=== PATIENT | male | born 1985 | race Caucasian/White ===

== ENCOUNTER 2019-11-06 09:15 | Emergency (ER) | payer OTHER ==
[2019-11-06] MEDS ORDERED: IBUPROFEN 800 MG TABLET PO STA (09:53)
[2019-11-06] MEDS ORDERED: ACETAMINOPHEN 325 MG TABLET PO STA (09:53)
[2019-11-06] MEDS ORDERED: methocarbamoL 500 MG TABLET PO STA (09:53)
--- NOTE | 2019-11-06 10:19 | ED Physician Documentation ---
PD HPI LOWER EXT INJURY - Stated complaint Stated Complaint: sss - Chief complaint Chief Complaint: Trauma Ext - History obtained from History obtained from: Patient - History of Present Illness PD HPI LOW EXT INJURY LOCATION: Right, Hip, Thigh Type of injury: Twist, Other (he was lifting garbage can and uses his foot under the bottom and kicks the can up as he is lifting it. This time today, he had an abrupt pain and pop feeling at right inguinal area radiating to posterior pelvis. Pain with bending at waist and lifting right thigh up.) Where injury occurred: Work Timing - onset: Today Timing - details: Abrupt onset, Still present Improved by: Rest Worsened by: Moving Associated symptoms: No: Weakness, Numbness, Swelling Review of Systems Constitutional: denies: Fever, Chills Nose: denies: Rhinorrhea / runny nose, Congestion Throat: denies: Sore throat Respiratory: denies: Cough Musculoskeletal: denies: Back pain (pain in posterior pelvis/SI area and to the front of the upper thigh on right.) Neurologic: denies: Focal weakness, Numbness PD PAST MEDICAL HISTORY - Past Medical History Cardiovascular: None Respiratory: None Neuro: None Endocrine/Autoimmune: None GI: None : None HEENT: None Psych: None Musculoskeletal: None Derm: None - Past Surgical History Past Surgical History: No - Present Medications Home Medications: Ambulatory Orders Medication Instructions Recorded Confirmed Hydrocodone/Acetaminophen [[place] 1 each PO Q6H PRN #15 tablet 11/06/19 5-325 Tablet] Ibuprofen [Motrin] 600 mg PO TID PRN #25 tab 11/06/19 Tizanidine HCl 4 mg PO TID PRN #25 capsule 11/06/19 - Allergies Allergies/Adverse Reactions: Allergies Allergy/AdvReac Type Severity Reaction Status Date / Time No Known Drug Allergies Allergy Verified 11/06/19 09:28 - Social History Does the pt smoke?: No Smoking Status: Former smoker Does the pt drink ETOH?: Yes Does the pt have substance abuse?: No - Immunizations Immunizations are current?: Yes PD ED PE NORMAL - Vitals Vital signs reviewed: Yes - General General: Alert and oriented X 3, No acute distress (limping with walk, favoring right thigh extension), Well developed/nourished - Back Back: No spinal TTP - Derm Derm: Normal color, Warm and dry - Extremities Extremities: Other (not tender in the inguinal area nor thihg. Pain with hip flexion against resistance and with knee lift on right. ) - Neuro Neuro: Alert and oriented X 3, No motor deficit, No sensory deficit Results - Vitals Vitals: Vital Signs - 24 hr 11/06/19 11/06/19 09:28 10:58 Temperature 36.2 C L 36.2 C L Heart Rate 56 L 54 L Respiratory 18 16 Rate Blood Pressure 145/97 H 118/89 H O2 Saturation 100 100 Oxygen O2 Source Room air - Rads (name of study) right hip Radiology: Prelim report reviewed (negative), See rad report PD MEDICAL DECISION MAKING - ED course Complexity details: considered differential (seems like psoas strain. ), d/w patient Departure - Departure Disposition: 01 Home, Self Care Clinical Impression: Strain of right psoas muscle Qualifiers: Encounter type: initial encounter Qualified Code(s): S76.011A - Strain of muscle, fascia and tendon of right hip, initial encounter Condition: Stable Record reviewed to determine appropriate education?: Yes Instructions: ED Sprain Hip Follow-Up: Mauro Cheema MD [Provider Admit Priv/Credential] - Prescriptions: Ibuprofen [Motrin] 600 mg PO TID PRN #25 tab PRN Reason: Pain Hydrocodone/Acetaminophen [[place] 5-325 Tablet] 1 each PO Q6H PRN #15 tablet PRN Reason: Pain Tizanidine HCl 4 mg PO TID PRN #25 capsule PRN Reason: Spasms Comments: Ice to the sore area periodically through the day today. Gentle stretching of the muscle to keep it from being stiff. No heavy lifting or repetitive bending for several days. Anti-inflammatories of ibuprofen 3 times a day. Add tizanidine muscle relaxant for spasms and stiffness. To that add Tylenol or hydrocodone if needed for worse pain. I would anticipate improvement over several days and resolution over a week. Follow-up if not better in that timeframe. Forms: Activity restrictions Discharge Date/Time: 11/06/19 10:59
--- NOTE | 2019-11-06 10:21 | XRAY Report ---
PROCEDURE: Hip w/Pelvis 2-3V RT INDICATIONS: abrupt right hip pain with knee lifting TECHNIQUE: AP pelvis with lateral view of the right hip. COMPARISON: None. FINDINGS: Bones: No fractures or dislocations. The hip joint spaces appear preserved. Pelvic ring appears inta ct. No suspicious bony lesions. Soft tissues: The visualized bowel gas pattern is normal. There is a small ossicle adjacent to the s uperior acetabular rim likely representing an os acetabuli. IMPRESSION: 1. No acute bony abnormality. 2. Small ossicle adjacent to the superior acetabular rim likely representing an os acetabuli. Reviewed by: Mt Lim MD on 11/06/2019 10:20 AM PDT Approved by: Mt Lim MD on 11/06/2019 10:20 AM PDT Station ID: [id number]
[2019-11-06 10:59] VITALS: BP 118/89
== END 2019-11-06 10:59 | disposition home or self-care (01) ==
LOC: ED 09:15
DX: S39.012A Strain of muscle, fascia and tendon of lower back, initial encounter (principal); X50.1XXA Overexertion from prolonged static or awkward postures, initial encounter; Y93.89 Activity, other specified; Y99.0 Civilian activity done for income or pay
CPT/HCPCS: 73502; 99283; 99284; A9270; 1040M

== ENCOUNTER 2019-11-07 07:16 | Emergency (ER) | payer OTHER ==
[2019-11-07 07:31] VITALS: BP 120/94
[2019-11-07] MEDS ORDERED: IBUPROFEN 800 MG TABLET PO STA (07:55)
[2019-11-07] MEDS ORDERED: HYDROcod/ACETAM 5/325 MG TABLET PO STA (07:55)
[2019-11-07] MEDS ORDERED: tiZANidine 4 MG TABLET PO STA (07:55)
--- NOTE | 2019-11-07 07:57 | ED Physician Documentation ---
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 Yesterday he was lifting a heavy can and using his foot to assist it, when he put the can back down he felt a sharp severe pain running from the inguinal area down the leg anteriorly. He was seen here yesterday and x-rays were done with an negative. He did not fill the prescriptions and could not sleep last night due to the pain. Review of Systems Constitutional: reports: Reviewed and negative Throat: reports: Reviewed and negative Cardiac: reports: Reviewed and negative Respiratory: reports: Reviewed and negative PD PAST MEDICAL HISTORY - Past Medical History Cardiovascular: None Respiratory: None Neuro: None Endocrine/Autoimmune: None GI: None : None HEENT: None Psych: None Musculoskeletal: None Derm: None - Past Surgical History Past Surgical History: No - Present Medications Home Medications: Ambulatory Orders Medication Instructions Recorded Confirmed Hydrocodone/Acetaminophen [[place] 1 each PO Q6H PRN #15 tablet 11/06/19 5-325 Tablet] Ibuprofen [Motrin] 600 mg PO TID PRN #25 tab 11/06/19 Tizanidine HCl 4 mg PO TID PRN #25 capsule 11/06/19 - Allergies Allergies/Adverse Reactions: Allergies Allergy/AdvReac Type Severity Reaction Status Date / Time No Known Drug Allergies Allergy Verified 11/07/19 07:30 - Social History Does the pt smoke?: No Smoking Status: Former smoker Does the pt drink ETOH?: Yes Does the pt have substance abuse?: No - Immunizations Immunizations are current?: Yes PD ED PE NORMAL - Vitals Vital signs reviewed: Yes - General General: Alert and oriented X 3, No acute distress - HEENT HEENT: PERRL, EOMI - Neck Neck: Supple, no meningeal sign, No bony TTP - Back Back: No spinal TTP - Extremities Extremities: Other (Muscular tenderness of the anterior thigh. Internal and external rotation on the right is painless.) - Neuro Neuro: Other (The patient has equal and normal Achilles and patellar reflexes bilaterally. Normal sensation in all areas of the legs. Patient denies saddle anesthesia. Normal strength in flexion-extension at the ankles, knees, and flexion of the hips.) Results - Vitals Vitals: Vital Signs - 24 hr 11/07/19 07:24 Temperature 36 C L Heart Rate 54 L Respiratory 16 Rate Blood Pressure 120/94 H O2 Saturation 99 Oxygen O2 Source Room air PD MEDICAL DECISION MAKING - ED course ED course: 34-year-old gentleman with muscular strain of the right lower extremity. Had a work-up yesterday which was negative. Conservative care was advised along with filling the prescriptions he already has. Departure - Departure Disposition: 01 Home, Self Care Clinical Impression: Strain of hip and thigh Qualifiers: Encounter type: initial encounter Laterality: right Qualified Code(s): S76.011A - Strain of muscle, fascia and tendon of right hip, initial encounter; S76.911A - Strain of unspecified muscles, fascia and tendons at thigh level, right thigh, initial encounter Condition: Good Record reviewed to determine appropriate education?: Yes Instructions: ED Strain Muscle Ext Comments: Fill the prescriptions you were given yesterday. Follow-up with the orthopedic surgeon listed on prior discharge instructions next week if not better. Return for new or worsening symptoms.
== END 2019-11-07 08:24 | disposition home or self-care (01) ==
LOC: ED 07:16
DX: S76.011A Strain of muscle, fascia and tendon of right hip, initial encounter (principal); S76.911A Strain of unspecified muscles, fascia and tendons at thigh level, right thigh, initial encounter; X50.0XXA Overexertion from strenuous movement or load, initial encounter; X50.3XXA Overexertion from repetitive movements, initial encounter; Y99.0 Civilian activity done for income or pay; Z87.891 Personal history of nicotine dependence
CPT/HCPCS: 99282; 99284; A9270

== ENCOUNTER 2019-11-15 13:31 | Outpatient (CLI) | payer OTHER ==
--- NOTE | 2019-11-15 16:31 | XRAY Report ---
PROCEDURE: Lumbar Spine Complete INDICATIONS: STRAIN OF MUSCLE,FASCIA TENDON OF LOW BACK,INITIAL TECHNIQUE: 4 views of the lumbar spine were acquired. COMPARISON: None. FINDINGS: Bones: There are 5 nonrib-bearing lumbar-type vertebral bodies of normal height and alignment. Disc h eight loss at L4-L5 and L5-S1 with associated degenerative endplate changes and facet hypertrophy. Th ere is mild bilateral osseous neural foraminal narrowing at these levels. No evidence of pars defect. Soft tissues: Overlying bowel gas pattern is normal. No suspicious soft tissue calcifications. IMPRESSION: Degenerative changes of the lower lumbar spine. Reviewed by: Ace Romero MD on 11/15/2019 4:30 PM PDT Approved by: Ace Romero MD on 11/15/2019 4:30 PM PDT Station ID: [id number]
== END 2019-11-15 13:32 | disposition home or self-care (01) ==
LOC: DI 13:31
PROVIDERS: ATTEND Orthopaedic Surgery
DX: S39.012A Strain of muscle, fascia and tendon of lower back, initial encounter (principal); M47.816 Spondylosis without myelopathy or radiculopathy, lumbar region
CPT/HCPCS: 72110

== ENCOUNTER 2019-11-24 14:27 | Outpatient (CLI) | payer OTHER ==
--- NOTE | 2019-11-26 16:20 | MRI Report ---
PROCEDURE: Hip RT W/O INDICATIONS: STRAIN OF MUSCLE, FASCIA, AND TENDON OR RT HIP TECHNIQUE: Noncontrast coronal T1 spin echo and STIR through the bony pelvis. Coronal and axial T2 fast spin ec ho with fat saturation, sagittal T1 spin echo, and oblique axial T2 fast spin echo with fat saturatio n through the hip. COMPARISON: None. FINDINGS: Image quality: Excellent. Bones and joints: Bone marrow of the pelvic ring and proximal femurs show normal signal throughout. No intraosseous lesions or fractures. No avascular necrosis of the femoral heads. Slight prominenc e of right femoral head neck junction is seen, which can be seen in the case of CAM type femoral acet abular impingement. The visualized lower lumbar spine appears normally aligned. Tendons: The gluteus medius and minimus tendons appear intact, without associated muscle atrophy. T he iliopsoas tendon appears intact, without adjacent bursal fluid collections. The origin of the ham string tendon is intact at the ischial tuberosity. Labrum and cartilage: In the absence of intra-articular contrast, there is suggestion of focal superi or anterior right hip labral tear. Cartilage surface of the femoral head appears of normal thickness. The alpha angle of the femur is within normal limits at less than 55 degrees. Soft tissues: Visualized muscles demonstrate normal bulk and internal signal. The proximal sciatic neurovascular bundle appears normal adjacent to the hamstring tendons. No free pelvic fluid. Bladde r wall thickness is normal. Genitourinary structures and bowel loops appear normal where visualized. IMPRESSION: 1. Mild prominence of right femoral head neck junction which can be seen in the case of cam type femo ral acetabular impingement. No fracture or dislocation. No marrow edema. No evidence of avascular nec rosis. 2. Finding is concerning for focal superior anterior right hip labral tear. 3. No gross muscle or tendon signal abnormality. Reviewed by: Glenn Mathur MD on 11/26/2019 2:45 PM PDT Approved by: Glenn Mathur MD on 11/26/2019 2:45 PM PDT Station ID: [id number]
== END 2019-11-24 14:28 | disposition home or self-care (01) ==
LOC: DI 14:27
PROVIDERS: ATTEND Orthopaedic Surgery
DX: R93.6 Abnormal findings on diagnostic imaging of limbs (principal)

== ENCOUNTER 2019-12-15 07:04 | Outpatient (CLI) | payer OTHER ==
--- NOTE | 2019-12-17 09:40 | MRI Report ---
PROCEDURE: Lumbar Spine W/O INDICATIONS: STRAIN OF MUSCLE, FASCIA, AND TENDON OF LOWER TECHNIQUE: Noncontrast sagittal T1 spin echo and T2 fast echo, sagittal STIR, axial T1 and T2 fast spin echo thr ough the lumbar spine. In cases with scoliosis, additional coronal T2 fast spin echo may be performe d. COMPARISON: Plain films of the lumbar spine dated 11.15.19 FINDINGS: Image quality: Excellent. Alignment and Curvature: 5 lumbar type vertebral bodies are present by plain film. There is loss of n ormal lumbar lordosis. There is mild, grade 1 retrolisthesis of L3 on L4 and L5 on S1. Bone Marrow: Marrow is of normal overall signal. No acute vertebral body compression fractures. Mi ld reactive signal within the end plates adjacent to the L3-L4, L4-L5, and L5-S1 intervertebral discs . Spinal Cord: Conus medullaris terminates at the lower L1 level. Visualized cord demonstrates normal signal and size. Paraspinous Soft Tissues: No paravertebral masses. T12-L1: Normal in appearance. L1-L2: Normal in appearance. L2-L3: Normal in appearance. L3-L4: Moderate disc height loss and desiccation. Mild diffuse disc bulge with superimposed right p aracentral disc extrusion which extends inferiorly within the anterior epidural space and lateral rec ess. Mild facet and ligament flavum hypertrophy. Mild epidural lipomatosis. There is moderate canal s tenosis. There is mild bilateral foraminal stenosis. There is compression of the right L4 nerve root within the lateral recess. L4-L5: Moderate disc desiccation. Mild disc height loss. Mild diffuse disc bulge. Mild facet and li gament flavum hypertrophy. Mild epidural lipomatosis. Mild canal stenosis. Mild bilateral foraminal s tenosis. L5-S1: Moderate disc height loss and desiccation. Mild diffuse disc bulge with superimposed left pa racentral protrusion. Mild bilateral facet and ligament flavum hypertrophy. Mild canal stenosis. Mild bilateral foraminal stenosis. IMPRESSION: 1. Multilevel degenerative disc and facet disease, in addition to epidural lipomatosis and ligamentum flavum hypertrophy. 2. Multilevel canal stenoses, worst at L3-L4, where there is moderate canal stenosis. 3. Right L4 nerve root compression at the L3-L4 disc space level as described above. Recommend correl ation with clinical symptoms to ascertain relevance of this finding. 4. Mild multilevel foraminal stenoses. Reviewed by: Chris French MD on 12/17/2019 9:39 AM PST Approved by: Chris French MD on 12/17/2019 9:39 AM PST Station ID: [id number]
== END 2019-12-15 07:05 | disposition home or self-care (01) ==
LOC: DI 07:04
PROVIDERS: ATTEND Physician Assistant
DX: S39.012A Strain of muscle, fascia and tendon of lower back, initial encounter (principal); M51.36 Other intervertebral disc degeneration, lumbar region; M48.061 Spinal stenosis, lumbar region without neurogenic claudication
CPT/HCPCS: 72148